=== PATIENT | male | born 1985 | race Caucasian/White ===

== ENCOUNTER 2020-12-16 04:07 | Emergency (ER) | payer OTHER ==
[2020-12-16] MEDS ORDERED: MEDROL 4MG DOSEP4 MG PO (04:36)
[2020-12-16] MEDS ORDERED: ATARAX25 MG PO (04:36)
== END 2020-12-16 08:30 | disposition home or self-care (01) ==
LOC: FER 04:07
DX: L50.0 Allergic urticaria (principal); F17.200 Nicotine dependence, unspecified, uncomplicated; Z88.8 Allergy status to other drugs, medicaments and biological substances
CPT/HCPCS: 96372; 99282; J0171; J1040